=== PATIENT | male | born 1985 | race Two or more races ===

== ENCOUNTER 2019-01-16 11:57 | Emergency (ER) | payer OTHER ==
[~2019-01-16] VITALS: Ht 177.8 cm; Wt 117.9 kg
[2019-01-16] MEDS ORDERED: GLEEVEC400 MG (12:11)
[2019-01-16] MEDS ORDERED: TOPROL XL25 M1 (12:11)
[2019-01-16] MEDS ORDERED: CELEXA20 MG (12:12)
[2019-01-16] MEDS ORDERED: PROTONIX40 MG (12:12)
== END 2019-01-16 17:56 | disposition home or self-care (01) ==
LOC: ER 11:57
DX: K29.70 Gastritis, unspecified, without bleeding (principal); R10.13 Epigastric pain